=== PATIENT | male | born 1960 | race Caucasian/White ===

== ENCOUNTER 2016-06-11 08:44 | Emergency (ER) ==
[2016-06-11] MEDS ORDERED: ASPIRIN PO STA (08:48)
[2016-06-11 09:04] LABS: MANUAL DIFF NEEDED? NO
[2016-06-11 09:05] LABS: BASO% 0.8 % (0.0-0.8); EOS# 0.32 X1000 (0.0-0.7); EOS% 4.1 % (0.0-10.0); HEMATOCRIT 45.3 % (42.0-52.0); IMM GRAN# 0.03 X1000 (0.0-0.04); IMM GRAN% 0.4 % (0.0-0.5); LYMPH# 2.05 X1000 (1.2-3.4); LYMPH% 26.3 % (20.5-51.1); MCH 28.1 PG (27-31); MCHC 33.1 g/dL (33-37); MONO# 0.79 X1000 (0.11-0.59); MONO% 10.2 % (1.7-9.3); MPV 10.7 FL (7.4-10.4); NEUT% 58.2 % (42.2-75.2); PLT 222 X1000 (130-400); RBC 5.33 XMIL (4.7-6.1)
[2016-06-11 09:22] LABS: INR 1.02 (0.86-1.15); PROTIME 13.7 Seconds (12.1-15.5); PTT PL 32.4 Seconds (22.6-43.9)
[2016-06-11 09:25] LABS: AGAP 11; ALBUMIN 4.2 g/dL (3.5-5.0); ALKALINE PHOSPHATASE 59 U/L (32-122); BUN 12 mg/dL (8-22); CALCIUM 9.5 mg/dL (8.8-10.2); CHLORIDE 102 mmol/L (98-107); CK PROFILE 91 U/L (24-204); COSMO 276; GOT 28 U/L (10-34); GPT 32 U/L (10-44); MAGNESIUM 1.9 mg/dL (1.5-2.7); POTASSIUM 3.7 mmol/L (3.5-5.1); SODIUM 138 mmol/L (136-145); TCO2 25 mmol/L (25-35); TOTAL PROTEIN 7.1 g/dL (6.3-8.3)
--- NOTE | 2016-06-11 09:38 | Diag Imaging Result Document ---
PROCEDURE NAME: CHEST-2 VIEWS - 06/11/2016 PA AND LATERAL RADIOGRAPHS OF THE CHEST: COMPARISON: 11/14/2015. FINDINGS: The lungs are grossly clear. There is no discrete pleural fluid collection or evidence of pneumothorax. The cardiomediastinal silhouette and upper airway are grossly unremarkable. IMPRESSION: No evidence of acute chest pathology.
--- NOTE | 2016-06-11 10:41 | PROVIDER DOCUMENTATION ---
Addendum entered and electronically signed by Petey Mason Scribe 06/11/16 16 :22: EKG Interpretation - EKG Time of EKG reading by physician:: 08:52 EKG Read and Signed by:: David Bills EKG Interpretation (*Must complete 3 of following elements*): Abnormal Rate: 65 Rhythm: nsr [place]: normal QRS: normal ST Wave: non-specific ST changes - EKG # 2 Time of EKG reading by physician:: 15:22 EKG Read and Signed by:: David Bills EKG Interpretation (*Must complete 3 of following elements*): Abnormal ( nonspecific T wave abnormality) Rate: 63 Rhythm: nsr [place]: normal QRS: LVH (moderate voltage criteria for lvh may be normal variant) Addendum entered and electronically signed by Katiana Hollis CRNP 06/11/16 15:53: Additional Progress - ADDITIONAL PLAN OF CARE/RESULTS Additional Progress/Plan/Lab Results: 1545: Verbal orders per Dr. Bills to start Heparin drip. Original Note: HPI-Chest Pain - General Source: patient - History of Present Illness-CP Location: reports: central Chest Pain Radiation: reports: jaw, arms Quality of Pain: reports: aching Severity in ED: moderate Onset/Duration: this morning Timing: still present Nitro Today/Relief: no nitro taken today Aspirin Treatment Today: 325 mg x 1, provided by ED Similar Symptoms Previously?: No Recently Seen Here or By Another Healthcare Provider: No <Petey Mason - Last Filed: 06/11/16 13:52> <Katiana Hollis - Last Filed: 06/11/16 14:56> - General Chief Complaint: Chest Pain Stated Complaint: CHEST PAIN Time Seen by Provider: 06/11/16 10:24 Allergies/Adverse Reactions: Patient Allergies Allergy/AdvReac Type Severity Reaction Status Date / Time No Known Allergies Allergy Verified 11/13/13 12:37 Home Medications: Home Medication List Medication Instructions Recorded Confirmed Last Taken Type Cyclobenzaprine [Flexeril] 10 mg PO PRN 11/13/13 11/13/13 Unknown History Hydrocodone/Acetaminophen [[place] 1 tab PO PRN 11/13/13 11/13/13 Unknown History 10-325 Tablet] Losartan/Hydrochlorothiazide 1 tab PO DAILY 11/13/13 11/13/13 Unknown History [Hyzaar 100-12.5 Tablet] - History of Present Illness-CP Nature of Presenting Problem: Presents to er with cc of chest pain since this am with bilateral arm pain and left jaw pain. Reports been out of blood pressure medications for 10 days and states been taking oxycotine and norco and it doesn't help the chest pain. Denies sob,n,v. (Petey Mason) Review of Systems - Adult - REVIEW OF SYSTEMS - ADULT Constitutional: denies: chills, fever, fatique Eyes: reports: no symptoms reported Ears, Nose, Mouth & Throat: denies: hearing loss, loose teeth, throat pain Cardiovascular: reports: chest pain. denies: irregular heart rate, orthopnea, syncope Respiratory: denies: cough, shortness of breath, wheezing Gastrointestinal: reports: no symptoms reported Genitourinary: reports: no symptoms reported Musculoskeletal: reports: no symptoms reported Integumentary: reports: no symptoms reported Neurological: reports: no symptoms reported Psychiatric: reports: no symptoms reported Endocrine: reports: no symptoms reported Hematologic/Lymphatic: reports: no symptoms reported Allergic/Immunologic: reports: no symptoms reported All Other Systems: Reviewed and Negative <Petey Mason - Last Filed: 06/11/16 13:52> Past History - Adult - PAST MEDICAL HISTORY-ADULT Review of Records: reports: Nursing Assessment Review, Medications Reviewed Major Childhood Illnesses: reports: denies history Cardiovascular: reports: HTN Respiratory: reports: denies history Gastrointestinal: reports: denies history Obstetrical/Gynecological: reports: denies history Genitourinary: reports: denies history Musculoskeletal: reports: chronic pain, intervertebral disc disease Neurological: reports: denies history Endocrine/Immune: reports: denies history Other Conditions: reports: denies history - PRIOR SURGERIES/PROCEDURES Surgical/Procedure History: reports: orthopedic (extremity) (left femur) - PRIOR HOSPITALIZATIONS Prior Hospitalizations: reports: for similar symptoms - IMMUNIZATION STATUS Flu Vaccine: See Nurse Assessment - FAMILY HISTORY Family History: reviewed, not pertinent - SOCIAL HISTORY Smoking: denies Substance Use: none/never <Petey Mason - Last Filed: 06/11/16 13:52> Physical Exam-General - PHYSICAL EXAM-ADULT Initial Vital Signs Reviewed: Yes - CONSTITUTIONAL General Appearance: appears well, alert, no apparent distress - EYES Eyes: PERRL/EOMI - HEAD, EARS, NOSE, MOUTH & THROAT HENMT: moist mucous membranes, normal ENT inspection, TMs normal, pharynx normal - RESPIRATORY Respiratory: chest non-tender, lungs clear, normal breath sounds, no pleuratic chest pain, no respiratory distress, no accessory muscle use - CARDIOVASCULAR Cardiovascular: regular rate, rhythm, no edema, no gallop, no JVD, no murmur - GASTROINTESTINAL (ABDOMEN) Abdominal Exam: normal bowel sounds, non tender, soft, no organomegaly, no pulsatile mass - MUSCULOSKELETAL Back Exam: normal inspection, no CVA tenderness, no vertebral tenderness Extremity: normal range of motion, non-tender - SKIN Integumentary: normal color, normal turgor, warm/dry - PSYCHIATRIC Psych/Mental Status: normal mood/affect, normal thought content, normal thought process, oriented x 3 <Petey Mason - Last Filed: 06/11/16 13:52> Progress - EKG 1 Time of EKG reading by physician:: 10:34 EKG Read and Signed by:: David Bills EKG Interpretation (*Must complete 3 of following elements*): Abnormal ( moderate voltage criteria for LVH may be normal variant) Rate: 54 Rhythm: sinus [place]in [place]: normal ST Wave: non-specific ST changes - XRAY 1 XRAY: Bilateral XRAY Study: Chest Impression: Normal XRAY Interpretation: nad <Petey Mason - Last Filed: 06/11/16 13:52> - REASSESSMENT Reassessment #1 Time Reassessed: 12:00 Status: other (patient remains clinically stable) Reassessment #2 Time Reassessed: 14:00 Status: improving (Dr. Ruiz at bedside, awaiting disposition) - CONSULTS/PCP/HOSPITALIST Notification #1 *Consult/PCP/Hospitalist*: Dr. Ruiz Time Discussed: 12:50 Reason/Comments: elevated troponin Consult Disposition: Will see in ED <Katiana Hollis - Last Filed: 06/11/16 14:56> - PLAN OF CARE/RESULTS Progress/Plan/Lab Results: Orders Category Date Time Status Cardiac Monitoring DIRECTED Care 06/11/16 08:48 Active Oxygen Therapy- ED Nursing DIRECTED Care 06/11/16 08:48 Active Saline Loc NOW Care 06/11/16 08:48 Active CHEST-2 VIEWS [RAD] Stat Exams 06/11/16 08:48 Draft CBC WITH ELECTRONIC DIFF [HEME] Stat Lab 06/11/16 08:58 Completed CK PROFILE [SP CHEM] Stat Lab 06/11/16 08:58 Completed COMPREHENSIVE METABOLIC PANEL [CHEM] Stat Lab 06/11/16 08:58 Completed MAGNESIUM [CHEM] Stat Lab 06/11/16 08:58 Completed PRO B-NATRIURETIC PEPTIDE Stat Lab 06/11/16 08:58 Completed PROTIME WITH INR PL [COAG] Stat Lab 06/11/16 08:[address] [COAG] Stat Lab 06/11/16 08:58 Completed TROPONIN T Stat Lab 06/11/16 08:58 Completed Aspirin Med 06/11/16 08:48 Discontinued 325 mg PO STAT STA EKG [EKG] Stat Ther 06/11/16 08:48 Ordered Vital Signs - 24 hr 06/11/16 08:52 Temperature 98.1 F Pulse Rate 70 Respiratory 24 Rate Blood Pressure 196/92 O2 Sat by Pulse 98 Oximetry Laboratory Tests 06/11/16 06/11/16 06/11/16 08:58 08:58 08:58 WBC RBC Hgb Hct MCV MCH MCHC RDW Std Deviation Plt Count MPV Immature Gran % (Auto) Neut % (Auto) Lymph % (Auto) [place] % (Auto) Eos % (Auto) Baso % (Auto) Immature Gran # (Auto) Neut # (Auto) Lymph # (Auto) [place] # (Auto) Eos # (Auto) Baso # (Auto) PT INR APTT (Factor Assay) Sodium 138 Potassium 3.7 Chloride 102 Carbon Dioxide 25 Anion Gap 11 BUN 12 Creatinine 0.8 Estimated GFR/1.73 m2 > 60 BUN/Creatinine Ratio 15 Glucose 115 H Calculated Osmolality 276 Calcium 9.5 Magnesium 1.9 Total Bilirubin 0.90 AST 28 ALT 32 Alkaline Phosphatase 59 Creatine Kinase 91 Troponin T < 0.010 Mcm-H-Murqosmlyqv Pept 49 Total Protein 7.1 Albumin 4.2 Globulin 3.0 Albumin/Globulin Ratio 1.0 06/11/16 06/11/16 08:58 08:58 WBC 7.78 RBC 5.33 Hgb 15.0 Hct 45.3 MCV 85.0 MCH 28.1 MCHC 33.1 RDW Std Deviation 13.1 Plt Count 222 MPV 10.7 H Immature Gran % (Auto) 0.4 Neut % (Auto) 58.2 Lymph % (Auto) 26.3 [place] % (Auto) 10.2 H Eos % (Auto) 4.1 Baso % (Auto) 0.8 Immature Gran # (Auto) 0.03 Neut # (Auto) 4.53 Lymph # (Auto) 2.05 [place] # (Auto) 0.79 H Eos # (Auto) 0.32 Baso # (Auto) 0.06 PT 13.7 INR 1.02 APTT (Factor Assay) 32.4 Sodium Potassium Chloride Carbon Dioxide Anion Gap BUN Creatinine Estimated GFR/1.73 m2 BUN/Creatinine Ratio Glucose Calculated Osmolality Calcium Magnesium Total Bilirubin AST ALT Alkaline Phosphatase Creatine Kinase Troponin T Wdl-O-Rybbcrhsnav Pept Total Protein Albumin Globulin Albumin/Globulin Ratio Laboratory Tests 06/11/16 06/11/16 06/11/16 08:58 08:58 08:58 WBC RBC Hgb Hct MCV MCH MCHC RDW Std Deviation Plt Count MPV Immature Gran % (Auto) Neut % (Auto) Lymph % (Auto) [place] % (Auto) Eos % (Auto) Baso % (Auto) Immature Gran # (Auto) Neut # (Auto) Lymph # (Auto) [place] # (Auto) Eos # (Auto) Baso # (Auto) PT INR APTT (Factor Assay) D-Dimer Sodium 138 Potassium 3.7 Chloride 102 Carbon Dioxide 25 Anion Gap 11 BUN 12 Creatinine 0.8 Estimated GFR/1.73 m2 > 60 BUN/Creatinine Ratio 15 Glucose 115 H Calculated Osmolality 276 Calcium 9.5 Magnesium 1.9 Total Bilirubin 0.90 AST 28 ALT 32 Alkaline Phosphatase 59 Creatine Kinase 91 Creatine Kinase Index CK-MB (CK-2) Troponin T < 0.010 Lxd-Y-Akiwuzhbgqh Pept 49 Total Protein 7.1 Albumin 4.2 Globulin 3.0 Albumin/Globulin Ratio 1.0 06/11/16 06/11/16 06/11/16 08:58 08:58 08:58 WBC 7.78 RBC 5.33 Hgb 15.0 Hct 45.3 MCV 85.0 MCH 28.1 MCHC 33.1 RDW Std Deviation 13.1 Plt Count 222 MPV 10.7 H Immature Gran % (Auto) 0.4 Neut % (Auto) 58.2 Lymph % (Auto) 26.3 [place] % (Auto) 10.2 H Eos % (Auto) 4.1 Baso % (Auto) 0.8 Immature Gran # (Auto) 0.03 Neut # (Auto) 4.53 Lymph # (Auto) 2.05 [place] # (Auto) 0.79 H Eos # (Auto) 0.32 Baso # (Auto) 0.06 PT 13.7 INR 1.02 APTT (Factor Assay) 32.4 D-Dimer 0.46 Sodium Potassium Chloride Carbon Dioxide Anion Gap BUN Creatinine Estimated GFR/1.73 m2 BUN/Creatinine Ratio Glucose Calculated Osmolality Calcium Magnesium Total Bilirubin AST ALT Alkaline Phosphatase Creatine Kinase Creatine Kinase Index CK-MB (CK-2) Troponin T Ffr-J-Gpzboezswrw Pept Total Protein Albumin Globulin Albumin/Globulin Ratio 06/11/16 06/11/16 11:36 11:36 WBC RBC Hgb Hct MCV MCH MCHC RDW Std Deviation Plt Count MPV Immature Gran % (Auto) Neut % (Auto) Lymph % (Auto) [place] % (Auto) Eos % (Auto) Baso % (Auto) Immature Gran # (Auto) Neut # (Auto) Lymph # (Auto) [place] # (Auto) Eos # (Auto) Baso # (Auto) PT INR APTT (Factor Assay) D-Dimer Sodium Potassium Chloride Carbon Dioxide Anion Gap BUN Creatinine Estimated GFR/1.73 m2 BUN/Creatinine Ratio Glucose Calculated Osmolality Calcium Magnesium Total Bilirubin AST ALT Alkaline Phosphatase Creatine Kinase 311 H D Creatine Kinase Index 7.2 H CK-MB (CK-2) 22.33 H Troponin T 0.207 H D Nvh-B-Zypghzdilbv Pept Total Protein Albumin Globulin Albumin/Globulin Ratio (Petey Mason) 1350: Dr. Johns at bedside for evaluation of patient and has given verbal orders for admission to [facility]. (Katiana Hollis) Departure - Departure Time of Disposition Order: 13:52 Certified Medical Emergency: Emergent <Petey Mason - Last Filed: 06/11/16 13:52> - Departure Time of Disposition Order: 14:51 Certified Medical Emergency: Emergent <Katiana Hollis - Last Filed: 06/11/16 14:56> - Departure DIAGNOSIS: Chest tightness Disposition: ADMITTED INPATIENT 09 Condition: Stable Referrals: Ronald Stout MD [Primary Care Provider] - Attestation - Scribe Verification/Attestation Scribe:: Petey Mason Acting as Scribe for:: Katiana Hollis Scribe documention review:: This chart was documented by a scribe and accurately reflects the service the provider performed and the decisions made by the provider. <Petey Mason - Last Filed: 06/11/16 13:52> - Physician/ HELEN Attestation Patient care was provided by Advanced Practice Provider:: Yes Advanced Practice Provider:: Katiana Hollis Advanced Practice Provider documentation review:: The Mid-level provider documentation, treatment plan and medical decision making was reviewed by the physician who agrees with all treatment and medical decision making by the MLP. <Katiana Hollis - Last Filed: 06/11/16 14:56> Physician Attestation
[2016-06-11] MEDS ORDERED: LABETALOL IV ONE (10:44)
--- NOTE | 2016-06-11 11:56 | EKG Report ---
Test Performed on : 06/11/2016 10:34:51 AM Test Reason : CP Blood Pressure : / mmHG Vent. Rate : 054 BPM Atrial Rate : 054 BPM P-R Int : 158 ms QRS Dur : 086 ms QT Int : 428 ms P-R-T Axes : 035 -14 -18 degrees QTc Int : 405 ms Sinus bradycardia. Moderate voltage criteria for LVH, may be normal variant Nonspecific T wave abnormality Abnormal ECG When compared with ECG of 11-JUN-2016 08:52, (Unconfirmed) No significant change was found Unconfirmed Result
[2016-06-11 12:52] LABS: CK INDEX 7.2 (0.0-2.5); CK-MB 22.33 ng/mL (0.0-5.0)
[2016-06-11] MEDS ORDERED: TYLENOL PO ONE (13:38)
[2016-06-11] MEDS ORDERED: LOPRESSOR PO ONE (14:17)
[2016-06-11] MEDS ORDERED: COZAAR PO ONE (14:17)
--- NOTE | 2016-06-11 15:14 | EKG Report ---
Test Performed on : 06/11/2016 08:52:18 AM Test Reason : repeat 6 hr Blood Pressure : / mmHG Vent. Rate : 065 BPM Atrial Rate : 065 BPM P-R Int : 146 ms QRS Dur : 072 ms QT Int : 396 ms P-R-T Axes : 076 -03 -19 degrees QTc Int : 411 ms Normal sinus rhythm. Nonspecific T wave abnormality Abnormal ECG No previous ECGs available Unconfirmed Result
--- NOTE | 2016-06-11 15:43 | EKG Report ---
Test Performed on : 06/11/2016 3:22:51 PM Test Reason : ROUTINE Blood Pressure : / mmHG Vent. Rate : 063 BPM Atrial Rate : 063 BPM P-R Int : 156 ms QRS Dur : 078 ms QT Int : 418 ms P-R-T Axes : 030 -20 -23 degrees QTc Int : 427 ms Normal sinus rhythm. Moderate voltage criteria for LVH, may be normal variant Nonspecific T wave abnormality Abnormal ECG When compared with ECG of 11-JUN-2016 10:34, (Unconfirmed) No significant change was found Unconfirmed Result
[2016-06-11] MEDS ORDERED: HEPARIN IV ONE (15:51)
[2016-06-11 15:53] LABS: CK INDEX 10.4 (0.0-2.5); CK-MB 70.22 ng/mL (0.0-5.0)
[2016-06-11] MEDS ORDERED: HEPARIN 25,000 UNITS/D5W 250 ML IV SCH (16:00)
[2016-06-11 16:56] VITALS: BP 176/117
== END 2016-06-11 17:03 | disposition short-term general hospital (02) ==
LOC: P.ED 08:44
DX: R07.89 Other chest pain (principal); R94.31 Abnormal electrocardiogram [ECG] [EKG]; M79.602 Pain in left arm; M79.601 Pain in right arm; R68.84 Jaw pain; I10 Essential (primary) hypertension; G89.29 Other chronic pain; Z79.899 Other long term (current) drug therapy
CPT/HCPCS: 36415; 71020; 80053; 82550; 82553; 83735; 83880; 84484; 85025; 85379; 85610; 85730; 93005; 96365; 96375; J1644

== ENCOUNTER 2016-06-20 16:52 | Emergency (ER) ==
[2016-06-20] MEDS ORDERED: NS 1,000 ML IV ONE (17:15)
[2016-06-20 17:17] LABS: MANUAL DIFF NEEDED? NO
[2016-06-20 17:20] LABS: BASO% 0.5 % (0.0-0.8); EOS# 0.35 X1000 (0.0-0.7); EOS% 3.6 % (0.0-10.0); HEMATOCRIT 43.8 % (42.0-52.0); HEMOGLOBIN 14.6 g/dL (14.0-18.0); IMM GRAN# 0.04 X1000 (0.0-0.04); IMM GRAN% 0.4 % (0.0-0.5); LYMPH# 2.58 X1000 (1.2-3.4); LYMPH% 26.5 % (20.5-51.1); MCH 28.4 PG (27-31); MCHC 33.3 g/dL (33-37); MCV 85.2 FL (81-99); MONO# 0.81 X1000 (0.11-0.59); MONO% 8.3 % (1.7-9.3); MPV 10.5 FL (7.4-10.4); NEUT% 60.7 % (42.2-75.2); PLT 356 X1000 (130-400); RBC 5.14 XMIL (4.7-6.1)
[2016-06-20] MEDS ORDERED: NS 1,000 ML ONE (17:20)
--- NOTE | 2016-06-20 17:23 | EKG Report ---
Test Performed on : 06/20/2016 4:57:55 PM Test Reason : CHEST PAIN Blood Pressure : / mmHG Vent. Rate : 084 BPM Atrial Rate : 084 BPM P-R Int : 148 ms QRS Dur : 078 ms QT Int : 380 ms P-R-T Axes : 051 -11 029 degrees QTc Int : 449 ms Normal sinus rhythm. Minimal voltage criteria for LVH, may be normal variant Borderline ECG When compared with ECG of 11-JUN-2016 15:22, (Unconfirmed) T wave inversion no longer evident in Inferior leads Unconfirmed Result
--- NOTE | 2016-06-20 17:26 | PROVIDER DOCUMENTATION ---
HPI-Syncope/Dizziness - General Source: patient - History of Present Illness-Syncope/Dizzy Prior Episodes: reports: no prior history Onset/Duration: reports: just prior to arrival Symptoms prior to episode: reports: lightheaded, visual disturbance Loss of Consciousness: brief (seconds) Location of injury. (If syncope resulted in an injury.): reports: none Recently Seen Here or By Another Healthcare Provider: Yes <Mary Kay Muse - Last Filed: 06/20/16 18:08> <Teri Jimenez - Last Filed: 06/20/16 19:30> - General Chief Complaint: Syncope Stated Complaint: DIZZINESS/LIGHTHEADED Time Seen by Provider: 06/20/16 17:30 Allergies/Adverse Reactions: Patient Allergies Allergy/AdvReac Type Severity Reaction Status Date / Time No Known Allergies Allergy Verified 11/13/13 12:37 Home Medications: Home Medication List Medication Instructions Recorded Confirmed Last Taken Type Amlodipine/Valsartan/Hcthiazid 1 each PO DAILY 06/20/16 06/20/16 Unknown History [Exforge Hct 10-320-25 mg Tab] Atorvastatin Calcium [Lipitor] 40 mg PO DAILY 06/20/16 06/20/16 Unknown History Doxazosin [Cardura] 4 mg PO DAILY 06/20/16 06/20/16 Unknown History - History of Present Illness-Syncope/Dizzy Nature of Presenting Problem: 55 yo M presents to the ER with complaint of 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 Pt was transfered to [facility] days ago and was told that he had a blood clot in his heart which caused an OR. When he went to and they went to [facility] they said that there was no sign of damage or plaque or problems. This morning pt was outside working in the yard, suddenly became very light headed and saw bright lights, had another episode minutes later and had a syncopal episode. Now is hypotensive and weak. (Mary Kay Muse) Review of Systems - Adult - REVIEW OF SYSTEMS - ADULT Constitutional: denies: chills, fever Eyes: reports: no symptoms reported Ears, Nose, Mouth & Throat: reports: no symptoms reported Cardiovascular: denies: chest pain, palpitations Respiratory: denies: cough, shortness of breath Gastrointestinal: denies: diarrhea, nausea, vomiting Genitourinary: reports: no symptoms reported Musculoskeletal: reports: no symptoms reported Integumentary: reports: no symptoms reported Neurological: reports: dizziness/vertigo, syncope Psychiatric: reports: no symptoms reported Endocrine: reports: no symptoms reported Hematologic/Lymphatic: reports: no symptoms reported Allergic/Immunologic: reports: no symptoms reported All Other Systems: Reviewed and Negative <Mary Kay Muse - Last Filed: 06/20/16 18:08> Past History - Adult - PAST MEDICAL HISTORY-ADULT Review of Records: reports: Nursing Assessment Review, Medications Reviewed Cardiovascular: reports: HTN, OR Musculoskeletal: reports: chronic pain, intervertebral disc disease - PRIOR SURGERIES/PROCEDURES Surgical/Procedure History: reports: orthopedic (extremity) (left femur), other (heart cath) - PRIOR HOSPITALIZATIONS Prior Hospitalizations: reports: for similar symptoms - IMMUNIZATION STATUS Childhood Immunizations: See Nurse Assessment Flu Vaccine: See Nurse Assessment - FAMILY HISTORY Family History: reviewed, not pertinent <aMry Kay Muse - Last Filed: 06/20/16 18:08> Physical Exam-General - PHYSICAL EXAM-ADULT Initial Vital Signs Reviewed: Yes - CONSTITUTIONAL General Appearance: alert, no apparent distress - EYES Eyes: PERRL/EOMI, pink conjunctivae - HEAD, EARS, NOSE, MOUTH & THROAT HENMT: normocephalic/atraumatic, normal ENT inspection - NECK Neck: supple, normal inspection - RESPIRATORY Respiratory: no respiratory distress, no accessory muscle use - CARDIOVASCULAR Cardiovascular: normal peripheral pulses, regular rate, rhythm - GASTROINTESTINAL (ABDOMEN) Abdominal Exam: normal bowel sounds, non tender, soft - MUSCULOSKELETAL Back Exam: no CVA tenderness, no vertebral tenderness Extremity: normal gait, normal inspection - SKIN Integumentary: normal color, warm/dry - NEUROLOGIC Neurologic: grossly normal, no motor/sensory deficits - PSYCHIATRIC Psych/Mental Status: normal mood/affect, normal thought content, normal thought process, oriented x 3 <Mary Kay Muse - Last Filed: 06/20/16 18:08> Progress - EKG 1 Time of EKG reading by physician:: 16:57 EKG Read and Signed by:: Ronald Stout EKG Interpretation (*Must complete 3 of following elements*): Abnormal ( borderline) Rate: 84 Rhythm: normal sinus rhythm [place]: normal QRS: LVH (minimal voltage criteria, may be normal variant) [place] Interval: normal ST Wave: normal - CHANGE OF SHIFT REPORT (ED Provider) Report Given and Care Transferred to:: Dr. Calvo Time of Transfer: 18:08 Items Pending: Labs (amylase) <Mary Kay Muse - Last Filed: 06/20/16 18:08> Departure <Mary Kay Muse - Last Filed: 06/20/16 18:08> - Departure Time of Disposition Order: 19:30 Certified Medical Emergency: Emergent <Teri Jimenez - Last Filed: 06/20/16 19:30> - Departure DIAGNOSIS: Syncope Qualifiers: Syncope type: unspecified Qualified Code(s): R55 - Syncope and collapse Disposition: HOME 01 Condition: Stable Attestation - Scribe Verification/Attestation Scribe:: Mary Kay Muse Acting as Scribe for:: Ronald Stout Scribe documention review:: This chart was documented by a scribe and accurately reflects the service the provider performed and the decisions made by the provider. <Mary Kay Muse - Last Filed: 06/20/16 18:08> - Scribe Verification/Attestation Scribe:: Teri Jimenez Acting as Scribe for:: Tanner Calvo Scribe documention review:: This chart was documented by a scribe and accurately reflects the service the provider performed and the decisions made by the provider. <Teri Jimenez - Last Filed: 06/20/16 19:30> Physician Attestation
[2016-06-20 17:35] LABS: INR 1.02 (0.86-1.15); PROTIME 13.7 Seconds (12.1-15.5)
[2016-06-20 17:36] LABS: AGAP 16; ALKALINE PHOSPHATASE 63 U/L (32-122); BUN 14 mg/dL (8-22); CALCIUM 9.5 mg/dL (8.8-10.2); CHLORIDE 99 mmol/L (98-107); CK PROFILE 58 U/L (24-204); COSMO 278; GOT 23 U/L (10-34); GPT 29 U/L (10-44); POTASSIUM 3.7 mmol/L (3.5-5.1); PTT PL 28.6 Seconds (22.6-43.9); SODIUM 138 mmol/L (136-145); TCO2 23 mmol/L (25-35)
--- NOTE | 2016-06-20 19:20 | EKG Report ---
Test Performed on : 06/20/2016 7:07:42 PM Test Reason : #2 Blood Pressure : / mmHG Vent. Rate : 067 BPM Atrial Rate : 067 BPM P-R Int : 156 ms QRS Dur : 086 ms QT Int : 414 ms P-R-T Axes : 037 000 -10 degrees QTc Int : 437 ms Normal sinus rhythm. Normal ECG When compared with ECG of 20-JUN-2016 16:57, (Unconfirmed) T wave inversion now evident in Inferior leads Nonspecific T wave abnormality, improved in Lateral leads Unconfirmed Result
[2016-06-20 19:46] VITALS: BP 124/081
--- NOTE | 2016-06-20 21:54 | Diag Imaging Result Document ---
PROCEDURE NAME: CHEST-PORTABLE - 06/20/2016 STUDY: Single portable radiograph of the chest. COMPARISON: 06/11/2016. CLINICAL HISTORY: FINDINGS: The lungs are grossly clear. There is no discrete pleural fluid collection or pneumothorax. The cardiomediastinal silhouette and upper airway are grossly unremarkable. IMPRESSION: No evidence of acute chest pathology.
== END 2016-06-20 19:44 | disposition home or self-care (01) ==
LOC: P.ED 16:52
DX: R55 Syncope and collapse (principal); R42 Dizziness and giddiness; I10 Essential (primary) hypertension; I25.2 Old myocardial infarction; G89.29 Other chronic pain; R94.31 Abnormal electrocardiogram [ECG] [EKG]; Z79.899 Other long term (current) drug therapy
CPT/HCPCS: 71010; 80053; 82550; 82948; 83735; 83880; 84484; 85025; 85610; 85730; 93005; 96360; 96361; J7030